=== PATIENT | female | born 1965 | race Caucasian/White ===

== ENCOUNTER 2017-08-08 07:05 | Day surgery (SDC) | payer BC, MEDICAID ==
[2017-08-08] MEDS ORDERED: Propofol 200 MG/20 ML SDV IV ONE (07:06)
[2017-08-08] MEDS ORDERED: Ondansetron 4 MG/2 ML SDV IVPUSH ONE (07:06)
[2017-08-08] MEDS ORDERED: Sodium Chloride 0.9% 10 ML Syringe FLUSH PRN (07:15)
[2017-08-08] MEDS ORDERED: Lactated Ringers 1,000 ML IV SCH (07:15)
--- NOTE | 2017-08-08 08:45 | PCM.OPNOTE ---
- General Post-Op/Procedure Note Date of Surgery/Procedure: 08/08/17 Operative Procedure(s): c scope Findings: normal colon Pre Op Diagnosis: LLQ abd pain Post-Op Diagnosis: nl scope Anesthesia Technique: MAC Primary Surgeon: Les Narayanan Anesthesia Provider: Link King Pathology: none Complications: None Condition: Good Free Text/Narrative:: see dictation
--- NOTE | 2017-08-08 10:02 | OR ---
DATE OF OPERATION: 08/08/2017 SURGEON: Les Narayanan MD PROCEDURE PERFORMED: Colonoscopy. PREOPERATIVE DIAGNOSIS: Left-sided abdominal pain as well as need for screening C scope. POSTOPERATIVE DIAGNOSIS: Normal colon. INDICATIONS FOR PROCEDURE: This is a patient who was referred for colonoscopy. She does have some complaints of some left-sided abdominal pain and is due for her colonoscopy for colon cancer. So she was offered and accepted same. DESCRIPTION OF OPERATION: After an excellent IV sedation was administered, digital rectal exam was performed. No marked abnormality was noted. The flexible colonoscope was inserted and advanced to the cecum without difficulty. The prep was excellent. The following findings were noted. Ascending colon, unremarkable. Transverse colon, unremarkable. Descending colon, unremarkable. Sigmoid and rectum, unremarkable. Colon was deflated. The scope was removed. The patient tolerated the procedure well, was taken to recovery room in good condition. /[id number] /[id number]
== END 2017-08-08 09:27 | disposition home or self-care (01) ==
LOC: FB.SDS 07:05
PROVIDERS: ATTEND Surgery
DX: Z12.11 Encounter for screening for malignant neoplasm of colon (principal); E66.9 Obesity, unspecified; Z68.36 Body mass index [BMI] 36.0-36.9, adult; F17.210 Nicotine dependence, cigarettes, uncomplicated; Z79.899 Other long term (current) drug therapy; Z91.030 Bee allergy status; Z90.49 Acquired absence of other specified parts of digestive tract; Z90.710 Acquired absence of both cervix and uterus; Z98.890 Other specified postprocedural states
CPT/HCPCS: 45378; J2405; J2704; J7120